=== PATIENT | male | born 1965 | race Caucasian/White ===

== ENCOUNTER 2021-12-13 18:56 | Inpatient (IN) ==
[2021-12-13] MEDS ORDERED: SODIUM CHLORIDE 0.9% 500 ML IV STA (19:05)
[2021-12-13] MEDS ORDERED: ONDANSETRON INJ 2 MG/ML 2 ML VIAL IV STA (19:14)
[2021-12-13] MEDS ORDERED: SODIUM CHLORIDE 0.9% 1000ML 1,000 ML IV ONE (19:14)
[2021-12-13] MEDS ORDERED: MoRPHine SULFATE 4 MG/ML 1 ML CARP\\VIAL IV STA (19:14)
--- NOTE | 2021-12-13 19:16 | Emergency Department Note ---
Impression & Plan Ileitis, Abdominal pain, Nausea, Diabetes mellitus ED Provider Note Provider: Jhon Hammer MD DATE OF SERVICE: 12/13/2021 CHIEF COMPLAINT: Abdominal pain HISTORY OF PRESENT ILLNESS: Patient is a 55-year-old gentleman past medical history of ulcerative colitis, hypertension and diabetes presenting here reporting intermittent lower right abdominal pain with some radiation to the right abdomen over the past 2 days. No vomiting but reports some upset and some nausea at times. Having some nonbloody diarrhea at times and then some constipation. Denies any testicular or penile complaints. Reports some urinary frequency but states has been hydrating a lot. Did not eat much other than bread today as his stomach felt a little unsettled. Denies any trauma or rash. Denies any chest pain or shortness of breath. Denies radiation of pain down the leg. Patient denies a significant history of similar. Patient states he has not taken any pain medicine today as he did not want to take anything on an empty stomach. Patient states the pain does not radiate to the back. No history of kidney stones reported. No blood in the urine reported. REVIEW OF SYSTEMS: A total of 10 review of systems was obtained and negative except as stated above in the HPI. PAST MEDICAL HISTORY: As noted above MEDICATIONS: Reviewed home medications SOCIAL HISTORY: Smoker, PHYSICAL EXAM: GENERAL: alert and oriented in no acute distress on stretcher Head: normocephalic and atraumatic EYES: No injection, discharge or icterus. NECK: Trachea midline. ENT: Mucous membranes pink and moist. LUNGS: Airway patent. No retractions. Breath sounds clear HEART: Regular rate and rhythm. No chest wall tenderness ABDOMEN: Soft with some slight right lower quadrant to right abdominal tenderness. Negative Puga's. SKIN: Acyanotic, warm, dry, without rashes and in particular no rash on the ri ght abdomen EXTREMITIES: Without swelling, tenderness or deformity NEUROLOGICAL: No focal deficits. No aphasia. No facial droop or slurred speech. Ambulatory. EK bpm sinus rhythm first-degree AV block with right bundle branch block. No acute ST segment elevation or depression with QTC of 452. CONTINUOUS CARDIAC MONITORING: was ordered and showed a heart rate of bpm in Patient's laboratory studies and imaging reviewed. Differential includes Appendicitis, testicular torsion, infections, diverticulitis, UTI, obstruction, mesenteric ischemia, aortic pathology, inflammatory bowel disease, renal colic, PUD, pancreatitis, biliary pathology, hernia, volvulus, constipation, as well as other pathologies. IMPRESSION/MEDICAL DECISION MAKING: Patient presents with right lower quadrant abdominal pain minimally reproducible. No radiation down the leg and doubt this is spinal in nature. Denies fever or chills. Reports some nausea but denies vomiting. States not had symptoms like this before. No history of kidney stone. Denies significant testicular pain. Denies any significant chest pain or shortness of breath otherwise. Given some pain medication here and nausea medicine. Given some IV hydration. Questions could be gallbladder related or appendix related or related to possible kidney stone. Basic labs were obtained as well as CT scan and ultrasound. With blood cell count normal at 10.4 and hemoglobin 17.3. No significant electrolyte abnormalities with normal renal function. Mild glucose elevation 153 the patient is a known diabetic. No concerning findings for acute pancreatitis or hepatitis with a slight bilirubin elevation 1.5. CRP mildly elevated 2.78. Negative COVID. CT report per radiology questions moderate to severe bowel wall thickening of the distal ileum to the ileocecal valve favoring an ileitis without fistula or abscess as well as a prominent appendix at 1 cm without significant periappendiceal inflammation. No concerning findings for ambrocio wel obstruction and a small amount of ascites are noted. Ultrasound shows some gallbladder polyps but no other significant gallbladder pathology. Mild CBD dilation but no evidence of stone on findings and bilirubin only very minimally elevated. Believe primary pathology related to ileitis. No other infectious contacts reported. Reports had seen [facility] 5 to 7 years ago last and has been on sulfasalazine. Low suspicion for appendicitis given the clinical history. Strong suspicion for IBD flare and will trial small amount of Solu- Medrol. Still with some significant pain and given some additional morphine here. Will bring to the hospital for pain control and further GI care. DIAGNOSIS: Ileitis, abdominal pain, nausea DISPOSITION: Hospitalist will evaluate Patient was agreeable with this plan. Past Med/Surg History Medical History Diabetes mellitus Hypertension Social History Smoking Status: Current every day smoker Preferred Language: Chinese Feels Safe at Home: Yes Allergies Allergies Allergy/AdvReac Type Severity Reaction Status Date / Time pioglitazone AdvReac Severe "thick Verified 10/13/21 15:17 blood" varenicline AdvReac Severe nightmares Verified 10/13/21 15:17 chocolate flavor AdvReac Unknown Gastrointestinal Verified 10/13/21 15:17 Upset Home Meds Home Medications Medication Instructions Recorded Confirmed atorvastatin 40 mg tablet 40 mg PO HS 10/13/21 12/13/21 dulaglutide 3 mg/0.5 mL 3 mg SUBCUT WK 10/13/21 12/13/21 subcutaneous pen injector (Trulicity) furosemide 40 mg tablet 40 mg PO DAILY PRN 10/13/21 12/13/21 glimepiride 2 mg tablet 2 mg PO QAM 10/13/21 12/13/21 losartan 50 mg tablet 50 mg PO DAILY 10/13/21 12/13/21 magnesium oxide 400 mg PO DAILY 10/13/21 10/13/21 metformin 500 mg tablet,extended 1,000 mg PO BID 10/13/21 10/13/21 release 24 hr omega 8-[id number]-wnu-fish oil 1,000 mg 1 cap PO DAILY 10/13/21 10/13/21 (120 mg-180 mg) capsule (Fish Oil) potassium chloride 20 mEq 20 meq PO DAILY 10/13/21 10/13/21 tablet,extended release(part/cryst) sulfasalazine 500 mg tablet 500 mg PO BID 10/13/21 10/13/21 Previous Rx's Medication Instructions Recorded hydrocodone 5 mg-acetaminophen 325 1 tab PO Q6H PRN #10 tab 10/13/21 mg tablet Results & Data (ED) Vital Signs Vital Signs - 24 hr 12/13/21 18:59 12/13/21 19:05 12/13/21 20:56 Temperature 36.6 C 37.2 C Temperature Source Temporal Artery Scan Oral Pulse Rate 100 H 75 Pulse Rhythm Regular Respiratory Rate 20 22 18 Respiratory Effort / Characteristics Non-Labored Non-Labored Respiratory Depth Normal Normal Respiratory Pattern Regular Blood Pressure 176/81 H Blood Pressure [Right Arm] 124/68 Blood Pressure Mean 112 Blood Pressure Mean [Right Arm] 86 Blood Pressure Position Sitting Pulse Oximetry 97 98 94 Oxygen Delivery Method Room Air Room Air Room Air Sepsis Recent Fever Within 48 Hours No Sepsis New/Unexplained Change in Mental Status N/A Sepsis Action Taken by Nursing No Action Required Laboratory Data Result diagrams: 12/13/21 19:33 12/13/21 19:33 Lab Results 12/13/21 12/13/21 12/13/21 Range/Units 19:33 19:33 19:40 WBC 10.42 (4.8-10.8) K/uL RBC 5.05 (4.7-6.1) M/uL Hgb 17.3 (14.0-18.0) g/dL POC Hgb (14.0-18.0) g/dl Hct 47.1 (42-52) % POC Hct (42-52) % MCV 93.3 (80-100) fL MCH 34.3 H (25-34) pg MCHC 36.7 H (32-36) g/dL RDW Std Deviation 48.2 H (36.4-46.3) fL RDW Coeff of Tawana 14.2 (11.5-14.5) % Plt Count 152 (130-400) K/uL MPV 9.8 (7.4-10.4) fL Immature Gran % (Auto) 0.2 % Neut % (Auto) 75.3 % Lymph % (Auto) 16.6 % Kay % (Auto) 7.6 % Eos % (Auto) 0.1 % Baso % (Auto) 0.2 % Neut # (Auto) 7.85 H (1.4-6.5) K/uL Lymph # (Auto) 1.73 (1.2-3.4) K/uL Kay # (Auto) 0.79 H (0.11-0.59) K/uL Eos # (Auto) 0.01 (0-0.5) K/uL Baso # (Auto) 0.02 (0-0.2) K/uL Immature Gran # (Auto) 0.02 (0.00-0.02) K/uL Polychromasia 1+ POC Sodium (135-144) mmol/L Sodium 134 L (136-145) mmol/L POC Potassium (3.3-5.0) mmol/L Potassium 4.0 (3.5-5.1) mmol/L POC Chloride (101-112) mmol/L Chloride 103 (98-107) mmol/L Carbon Dioxide 24 (21-32) mmol/L POC Total CO2 (24-31) mmol/L Anion Gap 7 (3-11) POC Anion Gap (16-25) mmol/L POC BUN (7-18) mg/dl BUN 15 (6-23) mg/dl Creatinine 0.89 (0.6-1.4) mg/dl POC Creatinine (0.6-1.3) mg/dl Est Cr Clr Drug Dosing 148.0 ml/min Est GFR ( Amer) 112.3 ml/min Est GFR (Non-Af Amer) 96.9 ml/min BUN/Creatinine Ratio 16.9 (10-20) Glucose 153 H (70-99(Fasting)) mg/dl POC Glucose (other) (70-99) mg/dl Calcium 8.7 (8.5-10.1) mg/dl POC Ioniz Calcium April (1.12-1.32) mmol/l Total Bilirubin 1.5 H (0.2-1.0) mg/dl AST 9 L (13-39) U/L ALT 9 (7-52) U/L Alkaline Phosphatase 82 (34-104) U/L Troponin I High Sens 4.1 (0-20) pg/ml C-Reactive Protein 2.78 H (0-0.5) mg/dl Total Protein 6.1 (6.0-8.3) gm/dl Albumin 3.7 (3.4-5.0) gm/dl Globulin 2.4 L (2.5-4.0) gm/dl Albumin/Globulin Ratio 1.5 (0.9-2) Lipase 22 (11-82) U/L SARS-CoV-2, RNA, NAAT NEGATIVE (NEGATIVE) 12/13/21 Range/Units 19:52 WBC (4.8-10.8) K/uL RBC (4.7-6.1) M/uL Hgb (14.0-18.0) g/dL POC Hgb 16.0 (14.0-18.0) g/dl Hct (42-52) % POC Hct 47 (42-52) % MCV (80-100) fL MCH (25-34) pg MCHC (32-36) g/dL RDW Std Deviation (36.4-46.3) fL RDW Coeff of Tawana (11.5-14.5) % Plt Count (130-400) K/uL MPV (7.4-10.4) fL Immature Gran % (Auto) % Neut % (Auto) % Lymph % (Auto) % Kay % (Auto) % Eos % (Auto) % Baso % (Auto) % Neut # (Auto) (1.4-6.5) K/uL Lymph # (Auto) (1.2-3.4) K/uL Kay # (Auto) (0.11-0.59) K/uL Eos # (Auto) (0-0.5) K/uL Baso # (Auto) (0-0.2) K/uL Immature Gran # (Auto) (0.00-0.02) K/uL Polychromasia POC Sodium 135 (135-144) mmol/L Sodium (136-145) mmol/L POC Potassium 4.0 (3.3-5.0) mmol/L Potassium (3.5-5.1) mmol/L POC Chloride 99 L (101-112) mmol/L Chloride (98-107) mmol/L Carbon Dioxide (21-32) mmol/L POC Total CO2 23 L (24-31) mmol/L Anion Gap (3-11) POC Anion Gap 18.0 (16-25) mmol/L POC BUN 14 (7-18) mg/dl BUN (6-23) mg/dl Creatinine (0.6-1.4) mg/dl POC Creatinine 0.9 (0.6-1.3) mg/dl Est Cr Clr Drug Dosing ml/min Est GFR ( Amer) ml/min Est GFR (Non-Af Amer) ml/min BUN/Creatinine Ratio (10-20) Glucose (70-99(Fasting)) mg/dl POC Glucose (other) 157 H (70-99) mg/dl Calcium (8.5-10.1) mg/dl POC Ioniz Calcium April 1.18 (1.12-1.32) mmol/l Total Bilirubin (0.2-1.0) mg/dl AST (13-39) U/L ALT (7-52) U/L Alkaline Phosphatase (34-104) U/L Troponin I High Sens (0-20) pg/ml C-Reactive Protein (0-0.5) mg/dl Total Protein (6.0-8.3) gm/dl Albumin (3.4-5.0) gm/dl Globulin (2.5-4.0) gm/dl Albumin/Globulin Ratio (0.9-2) Lipase (11-82) U/L SARS-CoV-2, RNA, NAAT (NEGATIVE) Administered Medications Discontinued Medications Sodium Chloride (Nss) 500 mls @ 999 mls/hr IV .Q31M STA Stop: 12/13/21 19:35 Last Infusion: 12/13/21 21:20 Dose: 0 mls/hr Documented by: [id number] Admin: 12/13/21 19:59 Dose: 999 mls/hr Documented by: [id number] Sodium Chloride (Nss 1000ml) 1,000 mls @ 999 mls/hr IV .Q1H1M ONE Stop: 12/13/21 20:14 Last Admin: 12/13/21 20:49 Dose: 999 mls/hr Documented by: [id number] Morphine Sulfate (Morphine Sulfate 4 Mg/Ml 1 Ml Carp\\Vial) 4 mg IV NOW STA Stop: 12/13/21 19:15 Last Admin: 12/13/21 19:59 Dose: 4 mg Documented by: [id number] Morphine Sulfate (Morphine Sulfate 2 Mg/Ml Carp) Confirm Administered Dose 2 mg .ROUTE .STK-MED ONE Stop: 12/13/21 21:30 Last Admin: 12/13/21 21:40 Dose: 2 mg Documented by: [id number] Morphine Sulfate (Morphine Sulfate 4 Mg/Ml 1 Ml Carp\\Vial) Confirm Administered Dose 4 mg .ROUTE .STK-MED ONE Stop: 12/13/21 21:31 Last Admin: 12/13/21 21:41 Dose: 4 mg Documented by: [id number] Ondansetron HCl (Ondansetron Inj 2 Mg/Ml 2 Ml Vial) 4 mg IV NOW STA Stop: 12/13/21 19:15 Last Admin: 12/13/21 19:59 Dose: 4 mg Documented by: [id number] Imaging Data Radiologist's Impression: Abdomen/Pelvis CT 12/13/21 19:[address] WITH IV CONTRAST CT DOSE: 1794.16 mGy.cm HISTORY: lower abd to R flank pain TECHNIQUE: Multiaxial CT images of the abdomen and pelvis were performed following the use of intravenous contrast. A dose lowering technique was utilized adhering to the principles of ALARA. COMPARISON STUDY: None. FINDINGS: A few bibasilar linear densities consistent with subsegmental atelectasis or scarring. No pneumoperitoneum. No pneumatosis. No suspicious lytic or blastic osseous lesions. The gallbladder is mildly distended. No gallbladder wall thickening. No hepatic or splenic masses. The pancreas and left adrenal gland are unremarkable. The spleen is enlarged measuring 17 cm in length. There is a small amount of ascites. There is a 1.2 cm indeterminate right adrenal gland nodule. No hydronephrosis. There are few hypodense renal lesions with the largest on the left measuring 4.5 cm. These favor cysts. A few prominent ileocolic lymph nodes which are likely reactive. Subcentimeter retroperitoneal lymph nodes do not meet CT criteria for pathologic involvement. The bladder is unremarkable. Colonic diverticulosis. No evidence for acute diverticulitis. Prominent appendix measuring up to 1 cm in diameter. This partially fills with gas. There is no definite periappendiceal inflammatory change to suggest acute appendicitis. Moderate to severe bowel wall thickening involving a long segment of the distal ileum to the level of the ileocecal valve. This is consistent with a nonspecific ileitis and favors an infectious or inflammatory process. No fistula or abscess identified. No evidence for bowel obstruction. IMPRESSION: 1. Moderate to severe bowel wall thickening involving a long segment of the distal ileum to the level of the ileocecal valve. This is consistent with a nonspecific ileitis and favors an infectious or inflammatory process. No fistula or abscess identified. 2. No evidence for bowel obstruction. 3. Prominent appendix measuring up to 1 cm. This partially fills with gas. There is no periappendiceal inflammatory change. Therefore, no definite evidence for acute appendicitis. Could be reactive to the adjacent ileitis. 4. Small amount of ascites. 5. Splenomegaly. 6. Additional findings as described above. ACT 112: Negative or not required by law. Electronically signed by: Misael Cleaning M.D. 12/13/2021 8:30 PM Gallbladder Ultrasound 12/13/21 19:13 ABDOMINAL ULTRASOUND, RIGHT UPPER QUADRANT HISTORY: Right-sided abdominal pain.. COMPARISON: Abdomen and pelvis CT 12/13/2021. FINDINGS: Pancreas: Obscured by overlying bowel gas. Liver: No hepatic masses. 23 cm in length. Trace perihepatic ascites. Gallbladder: No gallbladder wall thickening. No gallstones. A few small gallbladder polyps measuring up to 3 mm. CBD: Between 6 and 8 mm. Right kidney: No hydronephrosis. IMPRESSION: 1. A few small gallbladder polyps. No gallbladder wall thickening. No gallstones. 2. Mildly dilated common bile duct measuring between 6 and 8 mm. 3. Hepatomegaly with trace perihepatic ascites. ACT 112: Negative or not required by law. Electronically signed by: Misael Cleaning M.D. 12/13/2021 9:01 PM Discharge Plan Visit Data Chief Complaint: GI Assessment Stated Complaint: ABD PAIN, GOES TO R SIDE ED Provider: Jhon Hammer Discharge Problem: Ileitis, Abdominal pain, Nausea, Diabetes mellitus Patient Disposition: Being Evaluated by Hospitalist Forms Stand Alone Forms: My [facility] [employer] Prescriptions Prescriptions: No Action losartan 50 mg tablet 50 mg PO DAILY RF: 0 furosemide 40 mg tablet 40 mg PO DAILY PRN (Reason: Edema) RF: 0 atorvastatin 40 mg tablet 40 mg PO HS RF: 0 sulfasalazine 500 mg tablet 500 mg PO BID RF: 0 glimepiride 2 mg tablet 2 mg PO QAM RF: 0 potassium chloride 20 mEq tablet,ER particles/crystals 20 meq PO DAILY RF: 0 metformin 500 mg tablet extended release 24 hr 1,000 mg PO BID RF: 0 omega 0-ull-tnj-fish oil [Fish Oil] 1,000 mg (120 mg-180 mg) Capsule 1 cap PO DAILY RF: 0 magnesium oxide 400 mg magnesium Capsule 400 mg PO DAILY RF: 0 Trulicity 3 mg/0.5 mL pen injector 3 mg SUBCUT WK RF: 0 hydrocodone-acetaminophen 5-325 mg tablet 1 tab PO Q6H PRN (Reason: pain) Qty: 10 RF: 0 Referrals Referrals: Sirisha Toro DO [Primary Care Provider] - Discharge Problem: Abdominal pain Qualifiers: Abdominal location: right lower quadrant Qualified Code(s): R10.31 - Right lower quadrant pain Diabetes mellitus Qualifiers: Diabetes mellitus type: type 2 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
[2021-12-13 19:51] LABS: Hematocrit (blood only) 47.1 % (42-52); Hemoglobin 17.3 g/dL (14.0-18.0); Mean Corpuscular Hemoglobin 34.3 pg (25-34); Mean Corpuscular Hgb Conc 36.7 g/dL (32-36); Mean Corpuscular Volume 93.3 fL (80-100); Mean Platelet Volume 9.8 fL (7.4-10.4); Platelet Count 152 K/uL (130-400); RDW Coefficient of Variation 14.2 % (11.5-14.5); RDW Standard Deviation 48.2 fL (36.4-46.3); Red Blood Count 5.05 M/uL (4.7-6.1); White Blood Count 10.42 K/uL (4.8-10.8)
[2021-12-13 20:05] LABS: iSTAT Creatinine 0.9 mg/dl (0.6-1.3); iSTAT Ionized Calcium 1.18 mmol/l (1.12-1.32)
[2021-12-13] MEDS ORDERED: OPTIRAY 320 100ml IV ONE (20:12)
[2021-12-13 20:26] LABS: Troponin I High Sensitivity 4.1 pg/ml (0-20)
[2021-12-13 20:27] LABS: Albumin Globulin Ratio 1.5 (0.9-2); Albumin Level 3.7 gm/dl (3.4-5.0); BUN Creatinine Ratio 16.9 (10-20); Bilirubin,Total 1.5 mg/dl (0.2-1.0); C Reactive Protein 2.78 mg/dl (0-0.5); Calcium 8.7 mg/dl (8.5-10.1); Est GFR (African American) 112.3 ml/min; Est GFR (Non-African American) 96.9 ml/min; Globulin 2.4 gm/dl (2.5-4.0); Total Protein 6.1 gm/dl (6.0-8.3)
--- NOTE | 2021-12-13 20:32 | CT Scan Report ---
ABDOMEN AND PELVIS CT WITH IV CONTRAST CT DOSE: 1794.16 mGy.cm HISTORY: lower abd to R flank pain TECHNIQUE: Multiaxial CT images of the abdomen and pelvis were performed following the use of intrave nous contrast. A dose lowering technique was utilized adhering to the principles of ALARA. COMPARISON STUDY: None. FINDINGS: A few bibasilar linear densities consistent with subsegmental atelectasis or scarring. No p neumoperitoneum. No pneumatosis. No suspicious lytic or blastic osseous lesions. The gallbladder is m ildly distended. No gallbladder wall thickening. No hepatic or splenic masses. The pancreas and left adrenal gland are unremarkable. The spleen is enlarged measuring 17 cm in length. There is a small am ount of ascites. There is a 1.2 cm indeterminate right adrenal gland nodule. No hydronephrosis. There are few hypodense renal lesions with the largest on the left measuring 4.5 cm. These favor cysts. A few prominent ileocolic lymph nodes which are likely reactive. Subcentimeter retroperitoneal lymph no iglesia do not meet CT criteria for pathologic involvement. The bladder is unremarkable. Colonic divertic ulosis. No evidence for acute diverticulitis. Prominent appendix measuring up to 1 cm in diameter. Th is partially fills with gas. There is no definite periappendiceal inflammatory change to suggest acut e appendicitis. Moderate to severe bowel wall thickening involving a long segment of the distal ileum to the level of the ileocecal valve. This is consistent with a nonspecific ileitis and favors an inf ectious or inflammatory process. No fistula or abscess identified. No evidence for bowel obstruction. IMPRESSION: 1. Moderate to severe bowel wall thickening involving a long segment of the distal ileum to the level of the ileocecal valve. This is consistent with a nonspecific ileitis and favors an infectious or in flammatory process. No fistula or abscess identified. 2. No evidence for bowel obstruction. 3. Prominent appendix measuring up to 1 cm. This partially fills with gas. There is no periappendicea l inflammatory change. Therefore, no definite evidence for acute appendicitis. Could be reactive to t he adjacent ileitis. 4. Small amount of ascites. 5. Splenomegaly. 6. Additional findings as described above. ACT 112: Negative or not required by law. Electronically signed by: Misael Cleaning M.D. 12/13/2021 8:30 PM
[2021-12-13 20:35] LABS: Basophils # (auto) 0.02 K/uL (0-0.2); Basophils % (auto) 0.2 %; Eosinophils # (auto) 0.01 K/uL (0-0.5); Eosinophils % (auto) 0.1 %; Immature Granulocytes # (auto) 0.02 K/uL (0.00-0.02); Immature Granulocytes % (auto) 0.2 %; Lymphocytes # (auto) 1.73 K/uL (1.2-3.4); Lymphocytes % (auto) 16.6 %; Monocytes # (auto) 0.79 K/uL (0.11-0.59); Monocytes % (auto) 7.6 %; Neutrophils # (auto) 7.85 K/uL (1.4-6.5); Neutrophils % (auto) 75.3 %; Polychromasia 1+
--- NOTE | 2021-12-13 21:03 | Ultrasound Report ---
ABDOMINAL ULTRASOUND, RIGHT UPPER QUADRANT HISTORY: Right-sided abdominal pain.. COMPARISON: Abdomen and pelvis CT 12/13/2021. FINDINGS: Pancreas: Obscured by overlying bowel gas. Liver: No hepatic masses. 23 cm in length. Trace perihepatic ascites. Gallbladder: No gallbladder wall thickening. No gallstones. A few small gallbladder polyps measuring up to 3 mm. CBD: Between 6 and 8 mm. Right kidney: No hydronephrosis. IMPRESSION: 1. A few small gallbladder polyps. No gallbladder wall thickening. No gallstones. 2. Mildly dilated common bile duct measuring between 6 and 8 mm. 3. Hepatomegaly with trace perihepatic ascites. ACT 112: Negative or not required by law. Electronically signed by: Misael Cleaning M.D. 12/13/2021 9:01 PM
[2021-12-13] MEDS ORDERED: MoRPHine SULFATE 10 MG/ML CARP/VIAL IV STA (21:22)
[2021-12-13] MEDS ORDERED: MoRPHine SULFATE 2 MG/ML CARP ONE (21:29)
[2021-12-13] MEDS ORDERED: MoRPHine SULFATE 4 MG/ML 1 ML CARP\\VIAL ONE (21:30)
[2021-12-13] MEDS ORDERED: METHYLPREDNISOLONE IV STA (21:48)
--- NOTE | 2021-12-13 22:06 | History & Physical Report ---
Date of Service December 13, 2021 Assessment & Plan (1) Inflammatory bowel disease (ulcerative colitis): Plan: Has apparently mild disease at baseline. Has maintained on sulfasalazine since 1998. Last colonoscopy was November 2015 by Dianna SWENSON. This revealed divertic ulosis, multiple polyps, internal hemorrhoids. Repeat was recommended in one year and no further have been done per patient. (2) Ileitis: Plan: Abdominal pain for several days associated with a nonbloody diarrhea, progressively worsened pain. Likely this is a flare os UC and he is not toxic appearing. No evidence of infection, no history of food borne illness. No recent flares; last reported was 20 years ago. Most care has been through [facility] and [facility]. Maintains remission with sulfasalazine. He is a chronic daily smoker, however, which can trigger flares. He was counseled to quit and reports he has had issues with chantix in the past, but has never tried nicotine replacement. CT scan without bowel obstruction or evidence of perforation. In absence of this and no peritoneal signs or fever, no antibiotics are being added. Cont with Solumedrol started in the ER and given NSS with bowel rest given the pain associated with food. Avoid NSAIDs and opiates as much as able. Severe pain in the ER controlled with two doses of morphine. Consulted GI. (3) Diabetes mellitus: Plan: Reports good control. A1C in am. Cont with basal/bolus insulin with tight control given predicted steroid-induced hyperglycemia. (4) Dyslipidemia: Plan: chronic, stable, cont Liptor per home regimen. (5) LAISHA (obstructive sleep apnea): Plan: chronic, stable. Uses CPAP at home at 14cm H2O. Will cont this here qHS. (6) Smoking: Plan: Smokers cigars daily. Advised to quit as this is terrible for his health and can trigger UC flares. He iss in contemplative phase. (7) DVT prophylaxis: Plan: Lovenox Full Code Dispo-to floor. To home pending response to steroids over the next couple of days. DO Dianna Shankar Hospitalist History of Present Illness Chief Complaint: abdominal pain Primary Care Provider: Sirisha Toro DO 55 yo M presents with abdominal pain since Friday. Pain is sharp, like someone kicked you in the stomach. Started in the middle, then to the right, now spread around the lower part of the abdomen. Having non-bloody diarrhea, today BM x 5. Normally BMs are normal consistency and he has two. Denies fevers or chills. Hasn't been eating much. Denies chest pain or SOB. Allergies Allergy/AdvReac Type Severity Reaction Status Date / Time pioglitazone AdvReac Severe "thick Verified 12/13/21 22:03 blood" varenicline AdvReac Severe nightmares Verified 12/13/21 22:03 chocolate flavor AdvReac Unknown Gastrointestinal Verified 12/13/21 22:03 Upset Home Medications Medication Instructions Recorded Confirmed Type atorvastatin 40 mg tablet 40 mg PO HS 10/13/21 12/13/21 History dulaglutide 3 mg/0.5 mL 3 mg SUBCUT WK 10/13/21 12/13/21 History subcutaneous pen injector (Trulicity) furosemide 40 mg tablet 40 mg PO DAILY PRN 10/13/21 12/13/21 History glimepiride 2 mg tablet 2 mg PO QAM 10/13/21 12/13/21 History losartan 50 mg tablet 50 mg PO DAILY 10/13/21 12/13/21 History magnesium oxide 400 mg PO DAILY 10/13/21 12/13/21 History metformin 500 mg tablet,extended 1,000 mg PO BID 10/13/21 12/13/21 History release 24 hr omega [id number]-fish oil 1,000 mg 1 cap PO DAILY 10/13/21 12/13/21 History (120 mg-180 mg) capsule (Fish Oil) potassium chloride 20 mEq 20 meq PO DAILY 10/13/21 12/13/21 History tablet,extended release(part/cryst) sulfasalazine 500 mg tablet 500 mg PO BID 10/13/21 12/13/21 History glimepiride 2 mg tablet 4 mg PO QPM 12/13/21 12/13/21 History Past Med/Surg History Medical History Diabetes mellitus Dyslipidemia Inflammatory bowel disease (ulcerative colitis) LAISHA (obstructive sleep apnea) Polycythemia secondary to smoking Psoriasis Psoriatic arthritis Smoking Surgical History History of hernia surgery x2 Family History Father Colorectal cancer Diabetes Mother Breast cancer Diabetes Social History Smoking Status: Current every day smoker Tobacco Type: Cigars Hx Alcohol Use: No (rare) Hx Substance Use: No Preferred Language: Wolof current occupational status: employed current occupation: drives propane trucks Feels Safe at Home: Yes Review of Systems Review of Systems: All systems were reviewed and negative except as indicated in HPI above. Physical Exam Physical Exam: CONSTITUTIONAL: WNWD, vitals as above, generally well- appearing, NAD EYES: normal conjunctivae, no scleral icterus ENT: external ear and nose normal, MMM NECK: trachea midline RESPIRATORY: clear to auscultation bilaterally, no crackles, rales or wheezes, normal respiratory effort CARDIOVASCULAR: regular rate and rhythm, S1 and 2 heard without murmurs, gallops or rubs, no JVD, no peripheral edema CHEST: inspection of chest was normal GASTROINTESTINAL: normal bowel sounds, soft, generalized tenderness to palpation pepe LUQ, LLQ and RUQ, nondistended, no guarding MUSCULOSKELETAL: strength 5/5 throughout, head is normocephalic and atraumatic SKIN: warm and dry NEUROLOGIC: CN 2-12 grossly intact, no sensory deficit, normal cognition, normal speech, no tremor PSYCHIATRIC: alert cooperative and oriented to person, place and time. Euthymic mood, makes good eye contact, language grossly intact, recent and remote memory grossly intact. Results & Data Results & Data ([facility]) Vital Signs (Past 12 Hours) Vital Signs Temp Pulse Resp BP BP Pulse Ox 12/13/21 20:56 37.2 C 18 124/68 94 12/13/21 19:05 75 22 98 12/13/21 18:59 36.6 C 100 H 20 176/81 H 97 Laboratory Results Short CBC 12/13/21 Range/Units 19:33 WBC 10.42 (4.8-10.8) K/uL Hgb 17.3 (14.0-18.0) g/dL Hct 47.1 (42-52) % Plt Count 152 (130-400) K/uL BMP 12/13/21 19:33 Sodium 134 L Potassium 4.0 Chloride 103 Carbon Dioxide 24 BUN 15 Creatinine 0.89 Glucose 153 H Calcium 8.7 Liver Function 12/13/21 Range/Units 19:33 Total Bilirubin 1.5 H (0.2-1.0) mg/dl AST 9 L (13-39) U/L ALT 9 (7-52) U/L Alkaline Phosphatase 82 (34-104) U/L Albumin 3.7 (3.4-5.0) gm/dl Diagnostic Findings Abdomen/Pelvis CT 12/13/21 19:[address] WITH IV CONTRAST CT DOSE: 1794.16 mGy.cm HISTORY: lower abd to R flank pain TECHNIQUE: Multiaxial CT images of the abdomen and pelvis were performed following the use of intravenous contrast. A dose lowering technique was utilized adhering to the principles of ALARA. COMPARISON STUDY: None. FINDINGS: A few bibasilar linear densities consistent with subsegmental atelectasis or scarring. No pneumoperitoneum. No pneumatosis. No suspicious lytic or blastic osseous lesions. The gallbladder is mildly distended. No gallbladder wall thickening. No hepatic or splenic masses. The pancreas and left adrenal gland are unremarkable. The spleen is enlarged measuring 17 cm in length. There is a small amount of ascites. There is a 1.2 cm indeterminate right adrenal gland nodule. No hydronephrosis. There are few hypodense renal lesions with the largest on the left measuring 4.5 cm. These favor cysts. A few prominent ileocolic lymph nodes which are likely reactive. Subcentimeter retroperitoneal lymph nodes do not meet CT criteria for pathologic involvement. The bladder is unremarkable. Colonic diverticulosis. No evidence for acute diverticulitis. Prominent appendix measuring up to 1 cm in diameter. This partially fills with gas. There is no definite periappendiceal inflammatory change to suggest acute appendicitis. Moderate to severe bowel wall thickening involving a long segment of the distal ileum to the level of the ileocecal valve. This is consistent with a nonspecific ileitis and favors an infectious or inflammatory process. No fistula or abscess identified. No evidence for bowel obstruction. IMPRESSION: 1. Moderate to severe bowel wall thickening involving a long segment of the distal ileum to the level of the ileocecal valve. This is consistent with a nonspecific ileitis and favors an infectious or inflammatory process. No fistula or abscess identified. 2. No evidence for bowel obstruction. 3. Prominent appendix measuring up to 1 cm. This partially fills with gas. There is no periappendiceal inflammatory change. Therefore, no definite evidence for acute appendicitis. Could be reactive to the adjacent ileitis. 4. Small amount of ascites. 5. Splenomegaly. 6. Additional findings as described above. ACT 112: Negative or not required by law. Electronically signed by: Misael Cleaning M.D. 12/13/2021 8:30 PM Gallbladder Ultrasound 12/13/21 19:13 ABDOMINAL ULTRASOUND, RIGHT UPPER QUADRANT HISTORY: Right-sided abdominal pain.. COMPARISON: Abdomen and pelvis CT 12/13/2021. FINDINGS: Pancreas: Obscured by overlying bowel gas. Liver: No hepatic masses. 23 cm in length. Trace perihepatic ascites. Gallbladder: No gallbladder wall thickening. No gallstones. A few small gallbladder polyps measuring up to 3 mm. CBD: Between 6 and 8 mm. Right kidney: No hydronephrosis. IMPRESSION: 1. A few small gallbladder polyps. No gallbladder wall thickening. No gallstones. 2. Mildly dilated common bile duct measuring between 6 and 8 mm. 3. Hepatomegaly with trace perihepatic ascites. ACT 112: Negative or not required by law. Electronically signed by: Misael Cleaning M.D. 12/13/2021 9:01 PM Code Status & VTE Plan VTE Prophylaxis Plan VTE Prophylaxis will be ordered: Yes (1) Diabetes mellitus Diabetes mellitus longterm insulin use: with longterm use Diabetes mellitus type: type 2
[2021-12-13 23:20] LABS: Appearance Urine Clear (Clear); Bilirubin Urine Negative (Negative); Blood Urine Negative (Negative); Color Urine Yellow; Glucose Urine UA Negative (Negative); Ketones Urine Negative (Negative); Leukocyte Esterase Urine Negative (Negative); Nitrite Urine Negative (Negative); Protein Urine Negative (Negative); Specific Gravity Urine 1.037 (1.000-1.030); Urobilinogen Urine Negative (Negative); pH Urine 5.5 (4.5-7.5)
[2021-12-14] MEDS ORDERED: GLUCOSE 10 TABS/TUBE PO PRN (00:20)
[2021-12-14] MEDS ORDERED: DEXTROSE 50% 50 ML SYRINGE IV PRN (00:20)
[2021-12-14] MEDS ORDERED: GLUCAGON FOR INJ 1 MG VIAL SQ PRN (00:20)
[2021-12-14] MEDS ORDERED: oxyCODONE HCL IR 5 MG TAB (IMMEDIATE RELEASE) PO PRN (00:20)
[2021-12-14] MEDS ORDERED: GLUCOSE 40% GEL 15 GM TUBE PO PRN (00:20)
[2021-12-14] MEDS ORDERED: MoRPHine SULFATE 4 MG/ML 1 ML CARP\\VIAL IV PRN (00:20)
[2021-12-14] MEDS ORDERED: CARBOHYDRATES FOR HYPOGLYCEMIA PO PRN (00:20)
[2021-12-14] MEDS: INSULIN GLARGINE SOLOSTAR 100 UNITS/ML 3 ML PEN SC SCH ×2 (00:49→10:35)
[2021-12-14] MEDS: SODIUM CHLORIDE 0.9% 1000ML 1,000 ML IV SCH ×2 (00:54→08:49)
[2021-12-14] MEDS ORDERED: Nursing to Pharmacy Communication SCH (05:45)
[2021-12-14] MEDS ORDERED: methylPREDNISolone 40 MG in SYRINGE 0 ML IV SCH (06:00)
[2021-12-14] MEDS: INSULIN ASPART PER UNIT SQ SCH ×2 (06:10→17:39)
[2021-12-14] MEDS ORDERED: INSULIN ASPART PER UNIT SC SCH (07:30)
[2021-12-14 08:18] LABS: Hematocrit (blood only) 44.3 % (42-52); Hemoglobin 16.1 g/dL (14.0-18.0); Mean Corpuscular Hemoglobin 33.9 pg (25-34); Mean Corpuscular Hgb Conc 36.3 g/dL (32-36); Mean Corpuscular Volume 93.3 fL (80-100); Mean Platelet Volume 9.4 fL (7.4-10.4); Platelet Count 123 K/uL (130-400); RDW Coefficient of Variation 14.1 % (11.5-14.5); RDW Standard Deviation 48.1 fL (36.4-46.3); Red Blood Count 4.75 M/uL (4.7-6.1); White Blood Count 7.04 K/uL (4.8-10.8)
[2021-12-14] MEDS: sulfaSALAzine 500 MG TABLET PO SCH ×2 (08:36→17:38)
[2021-12-14] MEDS ORDERED: ENOXAPARIN INJ 40 MG/0.4 ML SYR SQ SCH (09:00)
[2021-12-14] MEDS ORDERED: POTASSIUM CHLORIDE CRTAB 20 MEQ TABCR PO SCH (09:00)
[2021-12-14] MEDS ORDERED: LOSARTAN POTASSIUM 50 MG TAB PO SCH (09:00)
[2021-12-14] MEDS ORDERED: MAGNESIUM OXIDE 400 MG TAB PO SCH (09:00)
[2021-12-14 09:11] LABS: BUN Creatinine Ratio 15.3 (10-20); C Reactive Protein 6.05 mg/dl (0-0.5); Calcium 8.5 mg/dl (8.5-10.1); Creatinine Clr Calc Pharmacy 133.9 ml/min; Est GFR (African American) 100.9 ml/min; Est GFR (Non-African American) 87.1 ml/min; Phosphorus 3.5 mg/dl (2.5-4.9); Potassium 4.9 mmol/L (3.5-5.1)
[2021-12-14] MEDS ORDERED: PHARMACY GLYCEMIC MGMT CONSULT PRN (09:12)
[2021-12-14] MEDS ORDERED: INSULIN GLARGINE SOLOSTAR 100 UNITS/ML 3 ML PEN SC SCH ×2 (09:15→21:00)
[2021-12-14 09:18] LABS: Estimated Average Glucose 123 mg/dl; Hemoglobin A1C 5.9 % (4.5-5.6)
--- NOTE | 2021-12-14 09:20 | Gastrointestinal Consultation ---
Date of Consultation December 14, 2021 Assessment & Plan (1) Abdominal pain: 55 year old male with UC on PO mesalamine, overdue for colonoscopy and needs to establish with GI as outpatient admitted with pain, imaging with nonspecific ileitis CRP/ESR Stool culture, giardia, c.diff Can continue clear liquid diet --> advance as tolerated Will wait for review inflammatory markers until crp/esr reviewed Will need colonoscopy, can arrange friday if admitted or as OP Will need OP EGD/EUS-LB given concern for cirrhosis Thank you for allowing us to participate in the care of this patient. Please call with any acute changes, questions or concerns. Please see addendum below with additional recommendation from my supervising physician. Supervising Physician Co-Signing Physician Notes I performed a history and physical examination of the patient today, including specifically on physical exam - soft abdomen. I have discussed the patient's management with the advanced practitioner. Please refer to the nurse kevin dinh's note for the documented findings and plan of care. UC Flare likely to recent decrease in the dose of his PO Sulfasalazine. Patient does not want to wait till Friday and wants to go home. Continue Prednisone PO 40 mg and can be discharged and will plan for colonoscopy in few weeks. Restart his full dose Sulfasalazine. EUS to evaluate his CBD and possible cirrhosis. Recall GI if needed. History of Present Illness Reason for Consultation: IBD Requesting Physician: Antonietta Israel MD Attending Physician: Antonietta Israel MD History of Present Illness 55 year old ulcerative colitis, hypertension and diabetes admitted through the ED with abdominal pain and constipation for 2 days - GI asked to evaluate for UC. Notes he has not seen GI in quite some time. Has been talking his PO mesalamine from PCP. Suggests at baseline is pain free. Typically moves his bowels daily. No diarrhea. About 2/3 days ago started to have discomfort adn change in bowel habits. No black o rbloody stools. Mild nausea but no vomiting. Tolerating PO well. No fever, chills, CP ,SOB. ESR/CRP pending ABD US 2021: A few small gallbladder polyps. No gallbladder wall thickening. No gallstones. 2. Mildly dilated common bile duct measuring between 6 and 8 mm. 3. Hepatomegaly with trace perihepatic ascites. CTAP 2021: Moderate to severe bowel wall thickening involving a long segment of the distal ileum to the level of the ileocecal valve. This is consistent with a nonspecific ileitis and favors an infectious or inflammatory process. No fistula or abscess identified. 2. No evidence for bowel obstruction. 3. Prominent appendix measuring up to 1 cm. This partially fills with gas. There is no periappendiceal inflammatory change. Therefore, no definite evidence for acute appendicitis. Could be reactive to the adjacent ileitis. 4. Small amount of ascites. 5. Splenomegaly. 6. Additional findings as described above. Colonoscopy 2016: Diverticulosis in the sigmoid colon and in the descending colon. - The examined portion of the ileum was normal. - The entire examined colon is normal. - One 10 mm polyp in the descending colon. Resected and retrieved. - One 3 mm polyp in the descending colon. Resected and retrieved. - One 8 mm polyp in the sigmoid colon. Resected and retrieved. - Internal hemorrhoids. - Biopsies were taken with a cold forceps for histology right colon (ascending and transverse). - Biopsies were taken with a cold forceps for histology in the left colon (descending, sigmoid, rectal). Allergies Allergy/AdvReac Type Severity Reaction Status Date / Time pioglitazone AdvReac Severe "thick Verified 12/13/21 22:03 blood" varenicline AdvReac Severe nightmares Verified 12/13/21 22:03 chocolate flavor AdvReac Unknown Gastrointestinal Verified 12/13/21 22:03 Upset Home Medications Medication Instructions Recorded Confirmed Type atorvastatin 40 mg tablet 40 mg PO HS 10/13/21 12/13/21 History dulaglutide 3 mg/0.5 mL 3 mg SUBCUT WK 10/13/21 12/13/21 History subcutaneous pen injector (Trulicity) furosemide 40 mg tablet 40 mg PO DAILY PRN 10/13/21 12/13/21 History glimepiride 2 mg tablet 2 mg PO QAM 10/13/21 12/13/21 History losartan 50 mg tablet 50 mg PO DAILY 10/13/21 12/13/21 History magnesium oxide 400 mg PO DAILY 10/13/21 12/13/21 History metformin 500 mg tablet,extended 1,000 mg PO BID 10/13/21 12/13/21 History release 24 hr omega 6-cix-kma-fish oil 1,000 mg 1 cap PO DAILY 10/13/21 12/13/21 History (120 mg-180 mg) capsule (Fish Oil) potassium chloride 20 mEq 20 meq PO DAILY 10/13/21 12/13/21 History tablet,extended release(part/cryst) sulfasalazine 500 mg tablet 500 mg PO BID 10/13/21 12/13/21 History glimepiride 2 mg tablet 4 mg PO QPM 12/13/21 12/13/21 History pantoprazole 40 mg granules 40 mg PO DAILY #30 ea 12/14/21 Rx delayed-release for susp in packet (Protonix) prednisone 20 mg tablet 40 mg PO DAILY 30 Days #60 tab 12/14/21 Rx Patient History Medical History Diabetes mellitus Dyslipidemia Inflammatory bowel disease (ulcerative colitis) LAISHA (obstructive sleep apnea) Polycythemia secondary to smoking Psoriasis Psoriatic arthritis Smoking Surgical History History of hernia surgery x2 Family History Father Colorectal cancer Diabetes Mother Breast cancer Diabetes Social History Smoking Status: Current every day smoker Tobacco Type: Cigars Second Hand Exposure: No; Do You Dip or Chew Tobacco: No; Tobacco Cessation Education Requested by Patient: No Hx Alcohol Use: Yes Alcohol type: beer and hard liquor Hx Substance Use: No Preferred Language: Malagasy Communication Ability: Effective Home Demonstration Agent Required: No Beliefs That Will Affect Care: None Current Living Situation: Spouse current occupational status: employed current occupation: drives propane trucks Other Information That Helps Us Care for You: No Feels Safe at Home: Yes Safety Concerns: Feels Safe At This Time Assistive Devices: None Review of Systems Review of Systems: All systems reviewed & are unremarkable except as noted in HPI & below Physical Exam Constitutional: WD/WN, vitals as above Respiratory: normal respiratory effort, lungs clear to auscultation Cardiovascular: RRR, no murmur, no edema Gastrointestinal (Abdomen): normal bowel sounds, soft, nontender, no hepatosplenomegaly Skin: no rashes, warm and dry Results & Data ([facility]) Vital Signs (Past 12 Hours) Vital Signs Temp Pulse Pulse Pulse Pulse Resp BP 12/14/21 07:30 36.5 C 73 18 181/81 H 12/14/21 01:30 84 22 12/14/21 00:24 36.9 C 84 18 12/14/21 00:20 36.9 C 84 18 12/13/21 23:58 37.0 C 81 18 12/13/21 22:00 75 16 BP Pulse Ox 12/14/21 07:30 94 12/14/21 01:30 94 12/14/21 00:24 136/75 93 12/14/21 00:20 136/75 93 12/13/21 23:58 146/64 H 93 12/13/21 22:00 123/68 93 Laboratory Results 12/14/21 12/14/21 12/14/21 Range/Units 07:54 07:54 07:54 WBC (4.8-10.8) K/uL RBC (4.7-6.1) M/uL Hgb (14.0-18.0) g/dL POC Hgb (14.0-18.0) g/dl Hct (42-52) % POC Hct (42-52) % MCV (80-100) fL MCH (25-34) pg MCHC (32-36) g/dL RDW Std Deviation (36.4-46.3) fL RDW Coeff of Tawana (11.5-14.5) % Plt Count (130-400) K/uL MPV (7.4-10.4) fL Immature Gran % (Auto) % Neut % (Auto) % Lymph % (Auto) % [place] % (Auto) % Eos % (Auto) % Baso % (Auto) % Neut # (Auto) (1.4-6.5) K/uL Lymph # (Auto) (1.2-3.4) K/uL [place] # (Auto) (0.11-0.59) K/uL Eos # (Auto) (0-0.5) K/uL Baso # (Auto) (0-0.2) K/uL Immature Gran # (Auto) (0.00-0.02) K/uL Polychromasia ESR Pending POC Sodium (135-144) mmol/L Sodium 136 (136-145) mmol/L POC Potassium (3.3-5.0) mmol/L Potassium 4.9 D (3.5-5.1) mmol/L POC Chloride (101-112) mmol/L Chloride 107 (98-107) mmol/L Carbon Dioxide 26 (21-32) mmol/L POC Total CO2 (24-31) mmol/L Anion Gap 3 (3-11) POC Anion Gap (16-25) mmol/L POC BUN (7-18) mg/dl BUN 15 (6-23) mg/dl Creatinine 0.98 (0.6-1.4) mg/dl POC Creatinine (0.6-1.3) mg/dl Est Cr Clr Drug Dosing 133.9 ml/min Est GFR ( Amer) 100.9 ml/min Est GFR (Non-Af Amer) 87.1 ml/min BUN/Creatinine Ratio 15.3 (10-20) Glucose 146 H (70-99(Fasting)) mg/dl POC Glucose (70-99) mg/dl POC Glucose (other) (70-99) mg/dl Estimat Average Glucose 123 mg/dl Hemoglobin A1c 5.9 H (4.5-5.6) % Calcium 8.5 (8.5-10.1) mg/dl POC Ioniz Calcium April (1.12-1.32) mmol/l Phosphorus 3.5 (2.5-4.9) mg/dl Magnesium 2.0 (1.7-2.4) mg/dl Total Bilirubin (0.2-1.0) mg/dl AST (13-39) U/L ALT (7-52) U/L Alkaline Phosphatase (34-104) U/L Troponin I High Sens (0-20) pg/ml C-Reactive Protein 6.05 H (0-0.5) mg/dl Total Protein (6.0-8.3) gm/dl Albumin (3.4-5.0) gm/dl Globulin (2.5-4.0) gm/dl Albumin/Globulin Ratio (0.9-2) Lipase (11-82) U/L Urine Color Urine Appearance (Clear) Urine pH (4.5-7.5) Ur Specific [place] (1.000-1.030) Urine Protein (Negative) Urine Glucose (UA) (Negative) Urine Ketones (Negative) Urine Blood (Negative) Urine Nitrite (Negative) Urine Bilirubin (Negative) Urine Urobilinogen (Negative) Ur Leukocyte Esterase (Negative) SARS-CoV-2, RNA, NAAT (NEGATIVE) 12/14/21 12/14/21 12/14/21 Range/Units 07:54 06:07 00:48 WBC 7.04 (4.8-10.8) K/uL RBC 4.75 (4.7-6.1) M/uL Hgb 16.1 (14.0-18.0) g/dL POC Hgb (14.0-18.0) g/dl Hct 44.3 (42-52) % POC Hct (42-52) % MCV 93.3 (80-100) fL MCH 33.9 (25-34) pg MCHC 36.3 H (32-36) g/dL RDW Std Deviation 48.1 H (36.4-46.3) fL RDW Coeff of Tawana 14.1 (11.5-14.5) % Plt Count 123 L (130-400) K/uL MPV 9.4 (7.4-10.4) fL Immature Gran % (Auto) % Neut % (Auto) % Lymph % (Auto) % [place] % (Auto) % Eos % (Auto) % Baso % (Auto) % Neut # (Auto) (1.4-6.5) K/uL Lymph # (Auto) (1.2-3.4) K/uL [place] # (Auto) (0.11-0.59) K/uL Eos # (Auto) (0-0.5) K/uL Baso # (Auto) (0-0.2) K/uL Immature Gran # (Auto) (0.00-0.02) K/uL Polychromasia ESR POC Sodium (135-144) mmol/L Sodium (136-145) mmol/L POC Potassium (3.3-5.0) mmol/L Potassium (3.5-5.1) mmol/L POC Chloride (101-112) mmol/L Chloride (98-107) mmol/L Carbon Dioxide (21-32) mmol/L POC Total CO2 (24-31) mmol/L Anion Gap (3-11) POC Anion Gap (16-25) mmol/L POC BUN (7-18) mg/dl BUN (6-23) mg/dl Creatinine (0.6-1.4) mg/dl POC Creatinine (0.6-1.3) mg/dl Est Cr Clr Drug Dosing ml/min Est GFR ( Amer) ml/min Est GFR (Non-Af Amer) ml/min BUN/Creatinine Ratio (10-20) Glucose (70-99(Fasting)) mg/dl POC Glucose 171 H 155 H (70-99) mg/dl POC Glucose (other) (70-99) mg/dl Estimat Average Glucose mg/dl Hemoglobin A1c (4.5-5.6) % Calcium (8.5-10.1) mg/dl POC Ioniz Calcium April (1.12-1.32) mmol/l Phosphorus (2.5-4.9) mg/dl Magnesium (1.7-2.4) mg/dl Total Bilirubin (0.2-1.0) mg/dl AST (13-39) U/L ALT (7-52) U/L Alkaline Phosphatase (34-104) U/L Troponin I High Sens (0-20) pg/ml C-Reactive Protein (0-0.5) mg/dl Total Protein (6.0-8.3) gm/dl Albumin (3.4-5.0) gm/dl Globulin (2.5-4.0) gm/dl Albumin/Globulin Ratio (0.9-2) Lipase (11-82) U/L Urine Color Urine Appearance (Clear) Urine pH (4.5-7.5) Ur Specific [place] (1.000-1.030) Urine Protein (Negative) Urine Glucose (UA) (Negative) Urine Ketones (Negative) Urine Blood (Negative) Urine Nitrite (Negative) Urine Bilirubin (Negative) Urine Urobilinogen (Negative) Ur Leukocyte Esterase (Negative) SARS-CoV-2, RNA, NAAT (NEGATIVE) 12/13/21 12/13/21 12/13/21 Range/Units 23:00 19:52 19:40 WBC (4.8-10.8) K/uL RBC (4.7-6.1) M/uL Hgb (14.0-18.0) g/dL POC Hgb 16.0 (14.0-18.0) g/dl Hct (42-52) % POC Hct 47 (42-52) % MCV (80-100) fL MCH (25-34) pg MCHC (32-36) g/dL RDW Std Deviation (36.4-46.3) fL RDW Coeff of Tawana (11.5-14.5) % Plt Count (130-400) K/uL MPV (7.4-10.4) fL Immature Gran % (Auto) % Neut % (Auto) % Lymph % (Auto) % [place] % (Auto) % Eos % (Auto) % Baso % (Auto) % Neut # (Auto) (1.4-6.5) K/uL Lymph # (Auto) (1.2-3.4) K/uL [place] # (Auto) (0.11-0.59) K/uL Eos # (Auto) (0-0.5) K/uL Baso # (Auto) (0-0.2) K/uL Immature Gran # (Auto) (0.00-0.02) K/uL Polychromasia ESR POC Sodium 135 (135-144) mmol/L Sodium (136-145) mmol/L POC Potassium 4.0 (3.3-5.0) mmol/L Potassium (3.5-5.1) mmol/L POC Chloride 99 L (101-112) mmol/L Chloride (98-107) mmol/L Carbon Dioxide (21-32) mmol/L POC Total CO2 23 L (24-31) mmol/L Anion Gap (3-11) POC Anion Gap 18.0 (16-25) mmol/L POC BUN 14 (7-18) mg/dl BUN (6-23) mg/dl Creatinine (0.6-1.4) mg/dl POC Creatinine 0.9 (0.6-1.3) mg/dl Est Cr Clr Drug Dosing ml/min Est GFR ( Amer) ml/min Est GFR (Non-Af Amer) ml/min BUN/Creatinine Ratio (10-20) Glucose (70-99(Fasting)) mg/dl POC Glucose (70-99) mg/dl POC Glucose (other) 157 H (70-99) mg/dl Estimat Average Glucose mg/dl Hemoglobin A1c (4.5-5.6) % Calcium (8.5-10.1) mg/dl POC Ioniz Calcium April 1.18 (1.12-1.32) mmol/l Phosphorus (2.5-4.9) mg/dl Magnesium (1.7-2.4) mg/dl Total Bilirubin (0.2-1.0) mg/dl AST (13-39) U/L ALT (7-52) U/L Alkaline Phosphatase (34-104) U/L Troponin I High Sens (0-20) pg/ml C-Reactive Protein (0-0.5) mg/dl Total Protein (6.0-8.3) gm/dl Albumin (3.4-5.0) gm/dl Globulin (2.5-4.0) gm/dl Albumin/Globulin Ratio (0.9-2) Lipase (11-82) U/L Urine Color Yellow Urine Appearance Clear (Clear) Urine pH 5.5 (4.5-7.5) Ur Specific [place] 1.037 H (1.000-1.030) Urine Protein Negative (Negative) Urine Glucose (UA) Negative (Negative) Urine Ketones Negative (Negative) Urine Blood Negative (Negative) Urine Nitrite Negative (Negative) Urine Bilirubin Negative (Negative) Urine Urobilinogen Negative (Negative) Ur Leukocyte Esterase Negative (Negative) SARS-CoV-2, RNA, NAAT NEGATIVE (NEGATIVE) 12/13/21 12/13/21 Range/Units 19:33 19:33 WBC 10.42 (4.8-10.8) K/uL RBC 5.05 (4.7-6.1) M/uL Hgb 17.3 (14.0-18.0) g/dL POC Hgb (14.0-18.0) g/dl Hct 47.1 (42-52) % POC Hct (42-52) % MCV 93.3 (80-100) fL MCH 34.3 H (25-34) pg MCHC 36.7 H (32-36) g/dL RDW Std Deviation 48.2 H (36.4-46.3) fL RDW Coeff of Tawana 14.2 (11.5-14.5) % Plt Count 152 (130-400) K/uL MPV 9.8 (7.4-10.4) fL Immature Gran % (Auto) 0.2 % Neut % (Auto) 75.3 % Lymph % (Auto) 16.6 % [place]ether % (Auto) 7.6 % Eos % (Auto) 0.1 % Baso % (Auto) 0.2 % Neut # (Auto) 7.85 H (1.4-6.5) K/uL Lymph # (Auto) 1.73 (1.2-3.4) K/uL [place] # (Auto) 0.79 H (0.11-0.59) K/uL Eos # (Auto) 0.01 (0-0.5) K/uL Baso # (Auto) 0.02 (0-0.2) K/uL Immature Gran # (Auto) 0.02 (0.00-0.02) K/uL Polychromasia 1+ ESR POC Sodium (135-144) mmol/L Sodium 134 L (136-145) mmol/L POC Potassium (3.3-5.0) mmol/L Potassium 4.0 (3.5-5.1) mmol/L POC Chloride (101-112) mmol/L Chloride 103 (98-107) mmol/L Carbon Dioxide 24 (21-32) mmol/L POC Total CO2 (24-31) mmol/L Anion Gap 7 (3-11) POC Anion Gap (16-25) mmol/L POC BUN (7-18) mg/dl BUN 15 (6-23) mg/dl Creatinine 0.89 (0.6-1.4) mg/dl POC Creatinine (0.6-1.3) mg/dl Est Cr Clr Drug Dosing 148.0 ml/min Est GFR ( Amer) 112.3 ml/min Est GFR (Non-Af Amer) 96.9 ml/min BUN/Creatinine Ratio 16.9 (10-20) Glucose 153 H (70-99(Fasting)) mg/dl POC Glucose (70-99) mg/dl POC Glucose (other) (70-99) mg/dl Estimat Average Glucose mg/dl Hemoglobin A1c (4.5-5.6) % Calcium 8.7 (8.5-10.1) mg/dl POC Ioniz Calcium April (1.12-1.32) mmol/l Phosphorus (2.5-4.9) mg/dl Magnesium (1.7-2.4) mg/dl Total Bilirubin 1.5 H (0.2-1.0) mg/dl AST 9 L (13-39) U/L ALT 9 (7-52) U/L Alkaline Phosphatase 82 (34-104) U/L Troponin I High Sens 4.1 (0-20) pg/ml C-Reactive Protein 2.78 H (0-0.5) mg/dl Total Protein 6.1 (6.0-8.3) gm/dl Albumin 3.7 (3.4-5.0) gm/dl Globulin 2.4 L (2.5-4.0) gm/dl Albumin/Globulin Ratio 1.5 (0.9-2) Lipase 22 (11-82) U/L Urine Color Urine Appearance (Clear) Urine pH (4.5-7.5) Ur Specific [place] (1.000-1.030) Urine Protein (Negative) Urine Glucose (UA) (Negative) Urine Ketones (Negative) Urine Blood (Negative) Urine Nitrite (Negative) Urine Bilirubin (Negative) Urine Urobilinogen (Negative) Ur Leukocyte Esterase (Negative) SARS-CoV-2, RNA, NAAT (NEGATIVE) (1) Abdominal pain Abdominal location: right lower quadrant Qualified Code(s): R10.31 - Right lower quadrant pain
--- NOTE | 2021-12-14 12:11 | Electrocardiogram Report ---
Test Reason : Blood Pressure : / mmHG Vent. Rate : 077 BPM Atrial Rate : 077 BPM P-R Int : 210 ms QRS Dur : 134 ms QT Int : 400 ms P-R-T Axes : 043 -07 030 degrees QTc Int : 452 ms Sinus rhythm with 1st degree A-V block Right bundle branch block Abnormal ECG When compared with ECG of 20-MAY-2008 07:03, Right bundle branch block has replaced Incomplete right bundle branch block Criteria for Anterior infarct are no longer Present Confirmed by Vince Pandey ([id number]) on 12/14/2021 12:11:18 PM Referred By: REFERRED SELF Confirmed By:Berry Pandey
--- NOTE | 2021-12-14 13:41 | Pharmacy Report ---
Pharmacy Glycemic Short Note 2 - Date of Service December 14, 2021 - Glycemic Short BSG Results (Last 24 hours): 12/13/21 12/13/21 12/14/21 19:33 19:52 00:48 Glucose 153 H POC Glucose 155 H POC Glucose (other) 157 H 12/14/21 12/14/21 12/14/21 06:07 07:54 12:42 Glucose 146 H POC Glucose 171 H 152 H POC Glucose (other) OUTPATIENT ANTIDIABETIC REGIMEN: * Trulicity 3 mg weekly * Amaryl 4 mg daily * metformin 1 gm PO BID * HbA1C = 5.9% ASSESSMENT: * Mr Ellis is a 55 y/o M with a PMH of T2DM who presents with IBD. Patient is currently NPO and on Methylprednisone 40 mg IV q8 hours. * Blood sugars have been 157-155 mg/dL overnight and today 171-152 mg/dL. * Patient has received Lantus 30 units. * Continue with Lantus HS. Scale with doses of 10-20 units. Lantus 30 units was appropriate for loading dose but may become too aggressive. * Novolog weight-based stress of 2/3. PLAN FOR INPATIENT GLYCEMIC CONTROL: * Hold outpatient oral diabetes medications * Basal insulin * Lantus 10-20 units SQ HS * Bolus insulin * NovoLog per scale ACHS or Q6hrs while NPO * Goal Range: Low 120 mg/dL - High 160 mg/dL * Correction Factor: 15 mg/dL/unit * Nutritional / Prandial insulin per carb ratio of 1 unit per 4 grams CHO consumed
--- NOTE | 2021-12-14 15:46 | Hospitalist Progress Note ---
Date of Service December 14, 2021 Assessment & Plan (1) Inflammatory bowel disease (ulcerative colitis): Plan: -Uncertain if current episode is a UC flare -d/c steroids pending stool studies (2) Ileitis: Plan: -Plan for colonoscopy on Friday -Clear liquid diet and advance as tolerated (3) Diabetes mellitus: Plan: -d/c lantus, continue correctional insulin while NPO -glycemic pharmacist consult (4) Dyslipidemia: (5) LAISHA (obstructive sleep apnea): Plan: chronic, stable. Uses CPAP at home at 14cm H2O. Will cont this here qHS. (6) Smoking: Plan: smoking cessation counseling (7) DVT prophylaxis: Plan: Lovenox Admission and Anticipated Discharge Date Admission Date: December 13, 2021 Subjective Patient denies diarrhea currently Reports diarrhea and then constipation "off/on" for past 2 months Denies bloody diarrhea "I don't think this is my colitis flare" because pain feels different Physical Exam Physical Exam: No acute distress, obese, non toxic appearing Respiratory: breathing comfortably on room air, no wheezing/rhonchi/rales Cardiovascular: regular rate and rhythm, no murmurs/rubs/gallops Gastrointestinal (Abdomen): obese, soft, non tender Musculoskeletal: no edema Neurologic: awake, alert, spontaneously moving extremities Results & Data Results & Data ([facility]) Vital Signs (Past 12 Hours) Vital Signs Temp Pulse Resp BP Pulse Ox 12/14/21 09:00 76 119/57 L 12/14/21 07:30 36.5 C 73 18 181/81 H 94 Laboratory Results Short CBC 12/13/21 12/14/21 Range/Units 19:33 07:54 WBC 10.42 7.04 (4.8-10.8) K/uL Hgb 17.3 16.1 (14.0-18.0) g/dL Hct 47.1 44.3 (42-52) % Plt Count 152 123 L (130-400) K/uL BMP 12/13/21 12/14/21 19:33 07:54 Sodium 134 L 136 Potassium 4.0 4.9 D Chloride 103 107 Carbon Dioxide 24 26 BUN 15 15 Creatinine 0.89 0.98 Glucose 153 H 146 H Calcium 8.7 8.5 Liver Function 12/13/21 Range/Units 19:33 Total Bilirubin 1.5 H (0.2-1.0) mg/dl AST 9 L (13-39) U/L ALT 9 (7-52) U/L Alkaline Phosphatase 82 (34-104) U/L Albumin 3.7 (3.4-5.0) gm/dl Urine 12/13/21 Range/Units 23:00 Urine Color Yellow Urine Appearance Clear (Clear) Urine pH 5.5 (4.5-7.5) Ur Specific [place] 1.037 H (1.000-1.030) Urine Protein Negative (Negative) Urine Glucose (UA) Negative (Negative) Medications Administered Current Inpatient Medications Atorvastatin Calcium (Atorvastatin 40 Mg Tab) 40 mg PO HS GERONIMO Stop: 01/13/22 20:59 Dextrose (Dextrose 50% 50 Ml Syringe) 25 - 50 ml IV UD PRN; Protocol PRN Reason: Hypoglycemia Protocol Stop: 01/13/22 00:19 Enoxaparin Sodium (Enoxaparin Inj 40 Mg/0.4 Ml Syr) 40 mg SQ QAM GERONIMO Stop: 01/14/22 08:59 Glucagon (Glucagon For Inj 1 Mg Vial) 1 mg SQ UD PRN; Protocol PRN Reason: Hypoglycemia Protocol Stop: 01/13/22 00:19 Glucose (Glucose 10 Tabs/Tube) 4 - 8 tabs PO UD PRN; Protocol PRN Reason: Hypoglycemia Protocol Stop: 01/13/22 00:19 Glucose (Glucose 40% Gel 15 Gm Tube) 15 - 30 gm PO UD PRN; Protocol PRN Reason: Hypoglycemia Protocol Stop: 01/13/22 00:19 Sodium Chloride (Nss 1000ml) 1,000 mls @ 125 mls/hr IV .Q8H GERONIMO Stop: 12/14/21 16:19 Last Admin: 12/14/21 08:49 Dose: 125 mls/hr Documented by: Insulin Aspart (Insulin Aspart Per Unit) 0 units SQ Q6 GERONIMO Stop: 01/13/22 05:59 Last Admin: 12/14/21 06:10 Dose: Not Given Documented by: Insulin Glargine (Insulin Glargine Solostar 100 Units/Ml 3 Ml Pen) 0 units SC HS GERONIMO; Protocol Stop: 01/13/22 20:59 Losartan Potassium (Losartan Potassium 50 Mg Tab) 50 mg PO DAILY GERONIMO Stop: 01/13/22 08:59 Last Admin: 12/14/21 08:39 Dose: 50 mg Documented by: Magnesium Oxide (Magnesium Oxide 400 Mg Tab) 400 mg PO DAILY [facility] Stop: 01/13/22 08:59 Last Admin: 12/14/21 08:39 Dose: 400 mg Documented by: Miscellaneous (Carbohydrates For Hypoglycemia ) 15 - 30 gm PO UD PRN PRN Reason: Hypoglycemia Protocol Stop: 01/13/22 00:19 Miscellaneous Information (Pharmacy Glycemic Mgmt Consult) 1 ea N/A UD PRN PRN Reason: Consult Stop: 01/13/22 09:11 Morphine Sulfate (Morphine Sulfate 4 Mg/Ml 1 Ml Carp\\Vial) 4 mg IV Q4H PRN PRN Reason: ssevere pain (7-10) Stop: 12/28/21 00:19 Oxycodone HCl (Oxycodone Hcl Ir 5 Mg Tab (Immediate Release)) 5 mg PO Q6H PRN PRN Reason: mod-severe pain (6-10) Stop: 12/28/21 00:19 Polyethylene Glycol/Electrolytes (Lavage Solution 4000ml) 16 dose PO TODAY@1600 [facility] Stop: 01/15/22 15:59 Potassium Chloride (Potassium Chloride Crtab 20 Meq Tabcr) 20 meq PO DAILY [facility] Stop: 01/13/22 08:59 Last Admin: 12/14/21 08:39 Dose: 20 meq Documented by: Sulfasalazine (Sulfasalazine 500 Mg Tablet) 500 mg PO BIDM [facility] Stop: 01/13/22 07:59 Last Admin: 12/14/21 08:36 Dose: 500 mg Documented by: (1) Diabetes mellitus Diabetes mellitus alf insulin use: with terminal clerk use Diabetes mellitus type: type 2
--- NOTE | 2021-12-14 17:06 | Discharge Summary ---
Date of Service December 14, 2021 Admission HPI Per Admitting Provider 55 yo M presents with abdominal pain since Friday. Pain is sharp, like someone kicked you in the stomach. Started in the middle, then to the right, now spread around the lower part of the abdomen. Having non-bloody diarrhea, today BM x 5. Normally BMs are normal consistency and he has two. Denies fevers or chills. Hasn't been eating much. Denies chest pain or SOB. Principal Diagnosis Nausea, abdominal pain Ileitis Hepatomegaly Ascites Discharge Exam Patient appeared well. He was NPO then advanced to clears which he tolerated. Abdominal pain resolved. Has not required pain medications today Patient felt comfortable leaving and follow up with GI for colonoscopy in upcoming week as outpatient Discharge Data Allergies Allergy/AdvReac Type Severity Reaction Status Date / Time pioglitazone AdvReac Severe "thick Verified 12/13/21 22:03 blood" varenicline AdvReac Severe nightmares Verified 12/13/21 22:03 chocolate flavor AdvReac Unknown Gastrointestinal Verified 12/13/21 22:03 Upset Consultations 12/13/21 21:48 ED Decision to Admit Stat 12/14/21 00:20 Consult Gastroenterology Routine Procedures Performed Operation Date: 12/17/21 17:00 <No data on this case meets the specified criteria> Ordered Studies 12/13/21 19:05 CT abd pelvis IV con only Stat 12/13/21 19:13 US gallbladder Stat Hospital Course (1) Inflammatory bowel disease (ulcerative colitis): (2) Ileitis: (3) Diabetes mellitus: (4) Dyslipidemia: (5) LAISHA (obstructive sleep apnea): (6) Smoking: (7) DVT prophylaxis: Mr Christopher Ellis is a 55 year old man with Ulcerative Colitis on sulfasalazine, last colonoscopy about 8- 9 years ago. He came to the ER 12/13 for worsening abdominal pain, nausea in the setting of intermittent non-bloody diarrhea for the past 1-2 months. Here, he had a CT A/P with contrast (results as below). He was admitted and placed on bowel rest. Then started on IV steroids. The next day, he was seen by GI and diet was advanced to clear liquid diet which he tolerated with no resulting abdominal pain. Since admission, he had no further diarrhea and stool studies were not able to be sent. Initially, plan was for him to have a colonoscopy the following Friday. However, patient feels better and wants to be released and have his colonoscopy to be arranged as an ouatpeitn with Dr Ho. Prior to discharge, we discussed that he can go home on a full liquid diet and slowly advance his diet to a low fiber diet. Patient has experience advancing his diet slowly and felt comfortable managing this at home. He will be discharged on prednisone 40mg daily x 30 days for empiric treatment of UC flare--> GI will arrange for tapering as outpatient. CT A/P with contrast IMPRESSION: 1. Moderate to severe bowel wall thickening involving a long segment of the distal ileum to the level of the ileocecal valve. This is consistent with a nonspecific ileitis and favors an infectious or inflammatory process. No fistula or abscess identified. 2. No evidence for bowel obstruction. 3. Prominent appendix measuring up to 1 cm. This partially fills with gas. There is no periappendiceal inflammatory change. Therefore, no definite evidence for acute appendicitis. Could be reactive to the adjacent ileitis. 4. Small amount of ascites. 5. Splenomegaly. 6. Additional findings as described above. Total Time Total Time Spent Total Time Spent (In Minutes): 40 Discharge Plan Discharge Items Patient Disposition: Home - Self-Care Reason For Visit: IBD FLARE Discharge Diagnosis: Abdominal pain, diarrhea Ileitis Ascites Condition on Discharge: Good Activity: Resume your previous activity Non-emergency contact: Primary Care Provider and [employer] Call non-emergency contact if: your symptoms worsen and you have a fever Follow-up/Referrals: Sirisha oTro DO [Primary Care Provider] - Ramandeep Ho MD [Hospitalist] - Diet: Full liquid Diet Comment: Advance diet slowly to low fiber diet Addtl Attending Provider Instructions: GI office will contact you to make arrangements for colonoscopy If you have fever/nausea/vomiting or worsening pain, please return to ER You will go home on prednisone 40mg daily for 30 days. GI office will then taper it down Pending Studies at Discharge: No Stand-Alone Forms: My Blued, Smoking Cessation Medications and DC Order Prescriptions: New prednisone 20 mg tablet 40 mg PO DAILY 30 Days Qty: 60 RF: 0 pantoprazole [Protonix] 40 mg granules for susp in packet 40 mg PO DAILY Qty: 30 RF: 0 Continued glimepiride 2 mg tablet 4 mg PO QPM RF: 0 losartan 50 mg tablet 50 mg PO DAILY RF: 0 furosemide 40 mg tablet 40 mg PO DAILY PRN (Reason: Edema) RF: 0 atorvastatin 40 mg tablet 40 mg PO HS RF: 0 sulfasalazine 500 mg tablet 500 mg PO BID RF: 0 glimepiride 2 mg tablet 2 mg PO QAM RF: 0 potassium chloride 20 mEq tablet,ER particles/crystals 20 meq PO DAILY RF: 0 metformin 500 mg tablet extended release 24 hr 1,000 mg PO BID RF: 0 omega [id number]-fish oil [Fish Oil] 1,000 mg (120 mg-180 mg) Capsule 1 cap PO DAILY RF: 0 magnesium oxide 400 mg magnesium Capsule 400 mg PO DAILY RF: 0 Trulicity 3 mg/0.5 mL pen injector 3 mg SUBCUT WK RF: 0 Discharge Orders: Discharge Order (Routine); Ordered 12/14/21 Ordered By: Antonietta Israel Admission Data Admit Date/Time: 12/13/21 22:01 Attending Provider: Antonietta Israel Admit Provider: Virgie Roberts Primary Care Provider: Sirisha Toro Other Providers: Virgie Roberts ; Maico Montes
[2021-12-14] MEDS ORDERED: ATORVASTATIN 40 MG TAB PO SCH (21:00)
[2021-12-15] MEDS ORDERED: ENOXAPARIN INJ 40 MG/0.4 ML SYR SQ SCH (09:00)
[2021-12-16] MEDS ORDERED: LAVAGE SOLUTION 4000ML PO SCH (16:00)
== END 2021-12-14 18:13 | disposition home or self-care (01) | DRG 386 ==
LOC: ED 18:56 → SUATTDRO 22:01 → 3W 22:01